=== PATIENT | male | born 1960 | race Caucasian/White ===

== ENCOUNTER → 2016-09-21 | Outpatient (CLI) | payer MEDICARE, MEDICAID ==
[2016-09-21 16:16] VITALS: BP 118/68
== END ==
LOC: MHUC 15:46
PROVIDERS: ATTEND Physician Assistant
DX: R42 Dizziness and giddiness (principal)
CPT/HCPCS: 99213

== ENCOUNTER → 2016-10-22 | Outpatient (CLI) | payer MEDICARE, MEDICAID ==
[2016-10-22 16:59] VITALS: BP 121/77
== END ==
LOC: MHUC 16:33
PROVIDERS: ATTEND Physician Assistant
DX: M54.5 Low back pain (principal); R10.32 Left lower quadrant pain; R10.31 Right lower quadrant pain
CPT/HCPCS: 99213

== ENCOUNTER → 2016-12-19 | Outpatient (CLI) | payer MEDICARE, MEDICAID ==
[~2016-12-19] MED LIST: AMOX1TAB12 PO; ESCI5TAB PO; RISP0.2517 PO
[2016-12-19 19:34] VITALS: BP 124/68
--- NOTE | 2016-12-19 19:34 | Urgent Care T Sheet Gen (E) ---
Intake General Temperature (Fahrenheit): 98.3 Pulse: 71 Blood Pressure Systolic: 124 Blood Pressure Diastolic: 68 Respirations: 20 SPO2: 97 Chief Complaint: diarrhea Description of Symptoms 56 year old male presents with caregiver describing diarrhea. Pt has mental diability and has hx of IBS. States he has been having diarrhea x 3 days. Unsure of number of stools per day but states more than one. Deneis fever, nausea, vomiting, abdominal pain. No recent travel, no ill contacts. He has been eating and drinking well. No abdominal pain or decreased appetite. Source: Caregiver, Patient Exam Limitations: Other (mental disability) History of Present Illness Onset & Duration: Days (3) Timing: Still present Severity: Mild Pain Intensity: 0 Modifying Factors: None Associated Symptoms: Denies symptoms Recent Trauma: No Similar Sympotms Previously: Yes Allergies: Coded Allergies: No Known Drug Allergies (Unverified , 04/04/15) Home Meds Active Scripts Amoxicillin/Clavulanate Potassium (Augmentin 875mg/125mg)1 Each Tablet1 Tab PO BID WITH MEALS 5 Days Ref 0 Prov:TRACY OSBORN MD 04/04/15 Reported Medications Risperidone (Risperdal)0.25 Mg TabletUnknown Dose PO DAILY 04/04/15 Escitalopram Oxalate (Lexapro)5 Mg TabletUnknown Dose PO DAILY 04/04/15 Respiratory Constitutional Symptoms: No Chills, No Diaphoresis, No Fever, No Malaise, No Weakness EENTM: No Eye pain, No Blurred vision, No Ear pain, No Nose Congestion, No Throat pain, No Mouth Pain Respiratory: No Cough, No Short of breath Cardiovascular: No Chest pain, No Palpitations Gastrointestinal/Abdominal: No Abdominal pain, No Constipation, Diarrhea (no blood or mucus, unsure of consistency) Musculoskeletal: No Joint pain, No Joint swelling, No Muscle pain, No Muscle stiffness Skin: No Change in color, No Lesions, No Rash Neurological: No symptoms reported Immunologic/Allergies: No symptoms reported All Other Systems Reviewed Remaining Systems: All other systems reviewed with negative findings Past [id number] Hx Patient's Social History Recent foreign travel: No Respiratory Respiratory History: None Cardiovascular Cardiovascular History: Pacemaker Reproductive System Sexually Transmitted Diseases: No Gastrointestinal GI/Endocrine History: None Diabetes Diabetes: No HEENT Impaired Vision: None Hearing Impaired: None Physical Exam Physical Exam General Appearance: WD/WN No apparent distress Eyes, Ears, Nose, Throat Ex: PERRL/EOMI Normal ENT inspection (mucus membranes moist) TMs normal Pharynx normal Neck Exam: Full range of motion Supple Normal inspection Normal thyroid Respiratory Exam: Chest non-tender Lungs clear Normal breath sounds No respiratory distress No accessory muscles used Cardiovascular Exam: Regular rate, rhythm No edema No gallop No JVD No murmur GI/ Exam: Non tender No organomegaly Normal bowel sounds No distention Rectal Exam: No Bloody stool, No Tenderness Back Exam: Normal Inspection No CVA tenderness Skin Exam: Normal color Warm/dry/intact No rashes No embolic lesions Extremity Exam: Non-tender Full range of motion Normal capillary refill No pedal edema No calf tenderness Neurologic/Psychiatric Exam: Oriented times 4 Mood/affect nml Departure Urgent Care Impression Chief Complaint: diarrhea Impression: Primary Impression: Diarrhea in adult patient Departure Disposition: HOME OR SELF-CARE Condition: Stable Referrals: KALEB BLACKMAN MD (PCP) Additional Instructions: Advised oral rehydration fluid to help with loss of electrolytes. Advised that he can eat bananas, potatoes, spinach or any foods rich in potassium and magnesium to assist with possible loss. Given that he has no fever or abdominal pain, he can take Loperamide otc as directed. Follow up with PCP if sx continue. RTC if fever, abdominal pain, weakness, chills or blood in stools. End of report . [employer] December 19, 2016 19:34
== END ==
LOC: MHUC 17:03
PROVIDERS: ATTEND Physician Assistant Surgical
DX: R19.7 Diarrhea, unspecified (principal)
CPT/HCPCS: 99213